=== PATIENT | female | born 1990 | race African-American/Black ===

== ENCOUNTER 2016-06-27 09:31 | Emergency (ER) | payer OTHER ==
[~2016-06-27] VITALS: Ht 157.5 cm; Wt 102.1 kg
[2016-06-27] MEDS ORDERED: NKM (09:39)
[2016-06-27] MEDS ORDERED: IBUPROFEN600 MG ORAL (09:50)
[2016-06-27] MEDS ORDERED: BACITRACIN ZIN1 EACH TOPIC (09:50)
[2016-06-27 09:53] VITALS: BP 111/73
[2016-06-27] MEDS ORDERED: Bacitracin Oint UD TOPIC ONE (10:00)
--- NOTE | 2016-06-27 10:03 | Emergency Room Report ---
History of Present Illness General Chief Complaint: Laceration Source: Patient Present Illness HPI The patient is a 26-year-old female who is right-hand dominant who presented after increased pain to her left hand. Patient reportedly cut her left small finger on a cabinet. Injury occurred approximately 1 day prior to arrival. The patient denies any other locations of pain. Patient states that she has had recent Vaccine for tetanus. The patient denies any foreign body sensation. Allergies: Coded Allergies: CHEESE (Verified Allergy, Unknown, 06/27/16) Patient History Past Medical History: see triage record Last Menstrual Period: IUD Reviewed Nursing Documentation: PMH: Agreed, PSxH: Agreed Nursing Documentation-PMH Past Medical History: No Stated History Review of Systems All Other Systems: negative except mentioned in HPI Physical Exam Vital Signs Date Time Temp Pulse Resp B/P Pulse Ox O2 Delivery O2 Flow Rate FiO2 06/27/16 09:35 98.1 81 16 111/73 98 Room Air General Appearance: well appearing, no apparent distress, alert, GCS 15 Head: normocephalic, atraumatic ENT: hearing grossly normal, normal voice Neck: full range of motion, supple Respiratory: no respiratory distress, speaking full sentences Cardiovascular #1: normal inspection, normal peripheral pulses, regular rate, rhythm Gastrointestinal: normal inspection, soft Musculoskeletal: normal inspection, no calf tenderness Neurologic: normal inspection, alert, oriented x3, responsive, normal gait Psychiatric: mood/affect normal Skin: no rash, laceration - flap laceration less than 1 cm, no bleeding to pad of left small finger Medical Decision Making Diagnostic Impression: Primary Impression: Laceration ER Course Patient presented for laceration. Differential diagnoses included foreign body , nerve injury, arterial injury among others. Patient was noted to have a laceration which was noted to be open for approximately 24 hours. The wound was left open. The patient was advised that wound rechecked in the next 3 days with her workers compensation physician. The patient was allowed to return to work with finger guard. Last Vital Signs Date Time Temp Pulse Resp B/P Pulse Ox O2 Delivery O2 Flow Rate FiO2 06/27/16 09:53 98.1 16 111/73 98 Room Air 06/27/16 09:35 81 Status: improved Disposition: HOME, SELF-CARE Condition: Stable Scripts Bacitracin Zinc* (BACITRACIN ZINC*) 1 Each Packet 1 APPLIC TOPIC THREE TIMES A DAY, #20 PACKET Prov: Pedro Hodges 06/27/16 Ibuprofen* (MOTRIN*) 600 Mg Tablet 600 MG ORAL Q8H Y for For Pain, #30 TAB 0 Refills Prov: Pedro Hodges 06/27/16 Patient Instructions: Laceration Care, Adult Pedro Hodges Jun 27, 2016 10:03
[2016-06-27 10:19] VITALS: BP 111/73
== END 2016-06-27 10:22 | disposition home or self-care (01) ==
LOC: EMR 10:15
DX: S61.217A Laceration without foreign body of left little finger without damage to nail, initial encounter (principal); Z91.018 Allergy to other foods; W45.8XXA Other foreign body or object entering through skin, initial encounter; Y92.9 Unspecified place or not applicable; Y99.8 Other external cause status
CPT/HCPCS: 99284